=== PATIENT | male | born 2000 | race Caucasian/White ===

== ENCOUNTER 2019-05-12 03:42 | Emergency (ER) | payer OTHER ==
--- NOTE | 2019-05-12 04:04 | ED ---
Substance Abuse/Use - HPI Summary HPI Summary: This patient is a 18 year old male presenting to [facility] with a chief complaint of ETOH intoxication. LEVEL 5 CAVEAT: HPI LIMITED DUE TO ETOH INTOXICATION - History Of Current Complaint Chief Complaint: EDSubstanceAbuse Stated Complaint: ETOH PER EMS Time Seen by Provider: 05/12/19 03:51 Hx Obtained From: EMS Overdose Characteristics: Oral - Allergies/Home Medications Allergies/Adverse Reactions: Allergies Allergy/AdvReac Type Severity Reaction Status Date / Time No Known Allergies Allergy Verified 05/12/19 03:45 Home Medications: Home Medications NK [No Home Medications Reported] 05/12/19 [History Confirmed 05/12/19] PMH/Surg Hx/FS Hx/Imm Hx Infectious Disease History: No Infectious Disease History: Denies: Traveled Outside the [place] in Last 30 Days - Social History Alcohol Use: Weekly Alcohol Amount: 2-3x Substance Use Type: Reports: None Smoking Status (MU): Never Smoked Tobacco - Additional Comments History Additional Comments: LEVEL 5 CAVEAT: PMH LIMITED DUE TO ETOH INTOXICATION Review of Systems - ROS Summary Review of Systems Summary: LEVEL 5 CAVEAT: ROS LIMITED DUE TO ETOH INTOXICATION Psychological: Other - ETOH Intoxication All Other Systems Reviewed And Are Negative: No Physical Exam - Summary Physical Exam Summary: Appearance: Well-appearing, Well-nourished, lying in bed comfortably Skin: Warm, dry, no obvious rash Eyes: sclera anicteric, no conjunctival pallor ENT: mucous membranes moist, pharynx appears normal Neck: Supple, nontender Respiratory: Clear to auscultation, no signs of respiratory distress Cardiovascular: Normal S1, S2. No murmurs. Normal distal pulses in tibial and radial bilaterally. Abdomen: Soft, nontender, normal active bowel sounds present Musculoskeletal: Normal, Strength/ROM Intact Neurological: Psychiatric: Triage Information Reviewed: Yes Vital Signs On Initial Exam: Initial Vitals Temp Pulse Resp BP Pulse Ox 97.1 F 74 21 118/71 100 05/12/19 03:43 05/12/19 03:43 05/12/19 03:43 05/12/19 03:43 05/12/19 03:43 Vital Signs Reviewed: Yes Procedures - Sedation Patient Received Moderate/Deep Sedation with Procedure: No Diagnostics - Vital Signs Vital Signs Temp Pulse Resp BP Pulse Ox 05/12/19 03:43 97.1 F 74 21 118/71 100 - Laboratory Lab Statement: Any lab studies that have been ordered have been reviewed, and results considered in the medical decision making process. Course/Dx - Course Course Of Treatment: This patient is a 18 year old male presenting to [facility] with a chief complaint of ETOH intoxication. The patient woke up and became sober and was ready to go home. A plan for discharge was discussed with the patient and he was agreeable with this plan. - Diagnoses Provider Diagnoses: Alcohol intoxication Discharge ED - Sign-Out/Discharge Documenting (check all that apply): Patient Departure - Discharge - Discharge Plan Condition: Improved Disposition: HOME Patient Education Materials: Alcohol Intoxication (ED) Referrals: [facility] [Outside] - Billing Disposition and Condition Condition: IMPROVED Disposition: Home - Attestation Statements Document Initiated by Kyle: Yes Documenting Hernánibe: Dhaval Mota Provider For Whom Kyle is Documenting (Include Credential): Julio Scruggs MD Scribe Attestation: Dhaval Hilario scribed for Julio Scruggs MD on 05/16/19 at 1809. Scribe Documentation Reviewed: Yes Provider Attestation: The documentation as recorded by the Dhaval paul accurately reflects the service I personally performed and the decisions made by , Julio Scruggs MD Status of Scribe Document: Viewed
[2019-05-12 09:26] VITALS: BP 98/50
--- NOTE | 2019-05-12 09:50 | ED ---
Progress - Progress Note Progress Note: This patient is a 18 y/o M brought to [facility] with a chief complaint of alcohol intoxication. Patient is a sign-out from Dr. Julio Scruggs to Dr. Julio Hernández at 0700 on 05/12/19 at shift change pending sobriety. Course/Dx - Course Course Of Treatment: This patient is a 18 y/o M brought to [facility] with a chief complaint of alcohol intoxication. Patient is a sign-out from Dr. Julio Scruggs to Dr. Julio Hernández at 0700 on 05/12/19 at shift change pending sobriety. In the ED, patient sobered, was able to ambulate around the department , and will be discharged home with dx of alcohol intoxication. Patient undersatnds and agrees with this plan. There was no sign of trauma and he had no C/O. - Diagnoses Provider Diagnoses: Alcohol intoxication Discharge ED - Sign-Out/Discharge Documenting (check all that apply): Patient Departure - Discharge, Receiving Sign-Out Receiving patient FROM: Julio Scruggs - Discharge Plan Condition: Improved Disposition: HOME Patient Education Materials: Alcohol Intoxication (ED) Referrals: [facility] [Outside] - Billing Disposition and Condition Condition: IMPROVED Disposition: Home - Attestation Statements Document Initiated by Scribe: Yes Documenting Scribe: Roderick Pritchett Provider For Whom Kyle is Documenting (Include Credential): Julio Hernández MD Scribe Attestation: Roderick Hilario, scribed for Julio Hernández MD on 05/12/19 at 1109. Scribe Documentation Reviewed: Yes Provider Attestation: The documentation as recorded by the Roderick paul accurately reflects the service I personally performed and the decisions made by me, Julio Hernández MD Status of Scribe Document: Viewed Procedures - Sedation Patient Received Moderate/Deep Sedation with Procedure: No
== END 2019-05-12 09:33 | disposition home or self-care (01) ==
LOC: ED 03:42
DX: F10.929 Alcohol use, unspecified with intoxication, unspecified (principal)
CPT/HCPCS: 99282